=== PATIENT | female | born 1960 | race Caucasian/White ===

== ENCOUNTER 2019-12-23 15:42 | Emergency (ER) | payer BC, SELFPAY ==
[2019-12-23 16:17] VITALS: BP 132/77; PULSE 73; RESP 18; TEMP 36.8; O2SAT 97; BMI 34.3
--- NOTE | 2019-12-23 16:17 | HMH.EDUTC ---
[facility] [place] Clinical Impression: Oscar UTI (urinary tract infection) Qualifiers: Urinary tract infection type: site unspecified Hematuria presence: with hematuria Qualified Code(s): N39.0 - Urinary tract infection, site not specified Disposition: Home, Self-Care Condition on Discharge: Good Instructions: Urinary Tract Infection Additional Instructions: Drink plenty of fluids. Take tylenol or ibuprofen for pain or fever. Take the medications as directed. Follow up with your regular doctor. GO TO THE ER FOR ANY WORSENING SYMPTOMS The pyridium will make your urine turn orange, this is an expected side effect. It will stain your clothes if it comes into contact with them. The ondesetron (zofran) is for nausea. You may not need to get this, but there's a prescription of it sent to your pharmacy if you do. Prescriptions: Ondansetron [Zofran 4mg ODT] 4 mg PO Q8HP PRN #10 tab.rapdis PRN Reason: Nausea [facility] Sulfamethoxazole/Trimethoprim [Bactrim DS tablet] 1 each PO BID 7 Days #14 tab Transmission Status: [facility] Permethrin [Elimite] 1 applicatio TP ONCE #1 bottle Transmission Status: [facility] predniSONE [Prednisone 20mg Tab] 20 mg PO BID 4 Days #8 tab Transmission Status: [facility] Phenazopyridine HCl [Pyridium 200mg Tablet] 200 pow PO TID #6 tab Transmission Status: Received by [facility] Referrals: Arnol Hurley [Primary Care Provider] - Time of Disposition: 16:30 Medical Decision Making - Medical Records Medical records reviewed: No: I reviewed the patient's medical records. - Pete Inquiry Pt receiving controlled substance: No Vital Signs: 12/23/19 16:17 12/23/19 16:44 Temperature 98.3 F 98.3 F Temperature Source Oral Pulse Rate 73 Pulse Rate [Left Brachial] 73 Respiratory Rate 18 18 Blood Pressure 132/77 Blood Pressure [Left Arm] 132/77 Blood Pressure Mean [Left Arm] 95 Blood Pressure Source [Left Arm] Automatic Cuff Blood Pressure Position [Left Arm] Sitting 02 Sat by Pulse Oximetry 97 Oxygen Delivery Method Room Air - Lab Data Lab results reviewed: Yes: I reviewed the patient's lab results. Lab Results 12/23/19 16:21: Urine Color Yellow, Urine Appearance Cloudy, Urine pH 5.5, Ur Specific Guild 1.020, Urine Protein Negative, Urine Glucose (UA) Negative, Urine Ketones Negative, Urine Blood 2+, Urine Nitrate Positive A, Urine Bilirubin Negative, Urine Urobilinogen 0.2, Ur Leukocyte Esterase 1+ A Orders (Tests/Meds): ORDERS Category Date Time Status Urine Culture Stat Micro 12/23/19 16:05 [place] [facility] [place] - General Stated complaint: possible UTI Time Seen by Provider: 12/23/19 16:17 - History of Present Illness Provider Complaint: She states that she began having burning while she urinates and low back pain this morning. She gets UTI's occasionally and states that she feels like she has one now. She also thinks that she has chiggers. Her and her have worked outside a lot the past few days, and both of them have been having itching and rash on their legs and chest. - Related Data Previous Rx's Medication Instructions Recorded Ondansetron [Zofran 4mg ODT] 4 mg PO Q8HP PRN #10 tab.rapdis 12/23/19 Permethrin [Elimite] 1 applicatio TP ONCE #1 bottle 12/23/19 Phenazopyridine HCl [Pyridium 200 pow PO TID #6 tab 12/23/19 200mg Tablet] Sulfamethoxazole/Trimethoprim 1 each PO BID 7 Days #14 tab 12/23/19 [Bactrim DS tablet] predniSONE [Prednisone 20mg 20 mg PO BID 4 Days #8 tab 12/23/19 Tab] Allergies Allergy/AdvReac Type Severity Reaction Status Date / Time Penicillins [PENICILLINS] Allergy Mild Verified 12/08/17 17:29 [facility] History - Hepatitis A Screen Attestation statement:: This patient has been screened for Hepatitis A risk factors.
[2019-12-23 16:28] LABS: Apearance,Urine Cloudy (Clear); Bilirubin,Urine Negative (Negative); Blood, Urine 2+ (Negative); Color,Urine Yellow (Yellow); Glucose,Urine (UA) Negative (Negative); Ketones,Urine Negative (Negative); PH,Urine 5.5 (5.0-8.5); Protein,Urine Negative (Negative); UTC Leukocyte Esterase,Urine 1+ (Negative); UTC Nitrate,Urine Positive (Negative); Urobilinogen,Urine 0.2 EU/dl (0.2)
[2019-12-23 16:44] VITALS: BP 132/77; PULSE 73; RESP 18; TEMP 36.8; O2SAT 97
== END 2019-12-23 16:48 | disposition home or self-care (01) ==
PROVIDERS: Emergency Provider Nurse Practitioner Family; PCP Family Medicine
DX: N39.0 Urinary tract infection, site not specified (principal); B88.0 Other acariasis; F17.210 Nicotine dependence, cigarettes, uncomplicated
CPT/HCPCS: 81003; 87086; 87088; 87186; 99201

== ENCOUNTER 2022-07-24 15:42 | Emergency (ER) | payer BC, SELFPAY ==
[2022-07-24 17:20] VITALS: BP 135/73; PULSE 81; RESP 19; TEMP 36.6; O2SAT 98; BMI 32.5
[2022-07-24 17:37] LABS: Apearance,Urine Cloudy (Clear); Bilirubin,Urine Negative (Negative); Blood, Urine Negative (Negative); Color,Urine Yellow (Yellow); Glucose,Urine (UA) Negative (Negative); Ketones,Urine Negative (Negative); PH,Urine 5.5 (5.0-8.5); Protein,Urine Negative (Negative); Specific Gravity, Urine 1.005 (1.005-1.030); UTC Leukocyte Esterase,Urine 1+ (Negative); UTC Nitrate,Urine Negative (Negative); Urobilinogen,Urine 0.2 EU/dl (0.2)
[2022-07-24 18:01] VITALS: BP 135/73; PULSE 81; RESP 19; TEMP 36.6; O2SAT 98
--- NOTE | 2022-07-24 18:04 | EXP.UTC ---
Discharge Plan Disposition Patient Disposition: Home, Self-Care Condition: Good Prescriptions Prescriptions: New nitrofurantoin monohyd/m-cryst [Macrobid] 100 mg capsule 100 mg PO Q12H 7 Days Qty: 14 0RF Rx Instructions: must administer with a meal/food phenazopyridine [Pyridium] 200 mg tablet 200 mg PO Q8H 2 Days Qty: 6 0RF No Action phenazopyridine 200 MG tablet 200 pow PO TID Qty: 6 0RF prednisone 20 MG tablet 20 mg PO BID 4 Days Qty: 8 0RF permethrin 60 GM cream 1 applicatio TP ONCE Qty: 1 0RF Rx Instructions: apply from neck down, wash off after 8 to 14 hours. sulfamethoxazole-trimethoprim 1 EACH tablet 1 each PO BID 7 Days Qty: 14 0RF ondansetron 4 MG tablet,disintegrating 4 mg PO Q8HP PRN (Reason: Nausea) Qty: 10 0RF Referrals Follow up/Referrals: Provider,Referral, MD [Primary Care Provider] - See instructions Activity Restrictions/Add. Instructions Additional Instructions/Restrictions: *Increase fluids. Water not Soda or Tea *Start antibiotic immediately and be sure to take as ordered for the FULL length of time although you should start to see improvement over the next 48 hours *Pyridium as needed Remember this medication will turn your urine . This is normal but it will stain what ever it gets on *You should not use Pyridium for more than 48 hours. If so , follow up with your primary physician to review urine culture and ensure that antibiotic is adequate for infection *Be SURE to follow up anytime for new or worsening symptoms with your family doctor. AND in 48 hours for urine culture results with your family doctor, if you do not have a doctor then you may call back to the [facility] for urine culture results and further treatment. We do recommend that you choose and establish care with a Primary Care Physician. ?AND follow up with them ?in 10-14 days to repeat UA to ensure infection is resolved and blood no longer present *Be sure to let your PCP know that we sent urine cultures from the [facility] so they can follow up to ensure that you area the on the correct antibiotic Call your doctor office and make appointment for 48 hours (2 days from today) ?to follow up and get the results of your urine culture and further treatment Clinical Impressions Clinical Impression: UTI (urinary tract infection) Instructions Patient Instructions: Nitrofurantoin, DI for Urinary Tract Infection (UTI) Discharge ED Provider: Margarita Grande [facility] [place] HPI General Stated complaint: POSSIBLE UTI Mode of Arrival: Ambulatory Source of Information: Patient Limitations: No Limitations Time Seen by Provider: 07/24/22 18:04 Description of Symptoms (Recalled from Triage Doc. by RN): PATIENT C/O BURNING AND FREQUENCY WITH URINATION SINCE YESTERDAY HEENT Symptoms (Recalled from RN notes): No Resp Symptoms (Recalled from RN notes): No Skin Symptoms (Recalled from RN notes): No MS Symptoms (Recalled from RN notes): No Functional Status (Recalled from RN notes): WNL History of Present Illness Provider Complaint: Patient states that she has been having burning with urination since yesterday States that today she was still having symptoms so she came in to get checked Related Data Previous Rx's Medication Instructions Recorded ondansetron 4 mg disintegrating 4 mg PO Q8HP PRN Nausea ##10 12/23/19 tablet permethrin 5 % topical cream 1 applicatio TP ONCE ##1 12/23/19 phenazopyridine 200 mg tablet 200 pow PO TID #6 tabs 12/23/19 prednisone 20 mg tablet 20 mg PO BID 4 days #8 tabs 12/23/19 sulfamethoxazole 800 1 each PO BID 7 days #14 tabs 12/23/19 mg-trimethoprim 160 mg tablet nitrofurantoin 100 mg PO Q12H 7 days #14 caps 07/24/22 monohydrate/macrocrystals 100 mg capsule (Macrobid) phenazopyridine 200 mg tablet 200 mg PO Q8H pain 2 days #6 tabs 07/24/22 (Pyridium) Allergies Allergy/AdvReac Type Severity Reaction Status Date / Time Penicillins [PENICILLINS] Allergy Mild Verified 12/08/17 17:
== END 2022-07-24 18:19 | disposition home or self-care (01) ==
PROVIDERS: Emergency Provider Nurse Practitioner
DX: N39.0 Urinary tract infection, site not specified (principal)
CPT/HCPCS: 81003; 87086; 87088; 87186; 99212; 99213; G0463

== ENCOUNTER 2023-09-04 15:25 | Emergency (ER) | payer BC, SELFPAY ==
[2023-09-04] VITALS (7 sets, daily range): BP systolic 108–154; BP diastolic 48–88; PULSE 82–87; RESP 16–23; TEMP 36.7–37.7; O2SAT 90–96; BMI 30.9
--- NOTE | 2023-09-04 15:23 | ECG_ITS ---
APPROVED REPORT Exam: Resting ECG HR:86 bpm ECG Measurements Heart Rate 86 AXES WV 159 P 76 QRSd 95 QRS -26 QT 361 T 73 QTc 405 Conclusion SINUS RHYTHM LOW QRS VOLTAGE IN PRECORDIAL LEADS [QRS DEFLECTION < 1.0 mV IN CHEST LEADS] POSSIBLE ANTERIOR MYOCARDIAL INFARCTION , PROBABLY OLD [30 ms Q WAVE IN V3/V4, OR R < 0.2 mV IN V4] BORDERLINE ECG UNCONFIRMED REPORT Electronically signed by : Solitario Stewart MD 09/04/2023 21:53:12
[2023-09-04 16:15] LABS: Influenza A, PCR Not Detected (NotDetected); Influenza B, PCR Not Detected (NotDetected)
--- NOTE | 2023-09-04 16:18 | XR_ITS ---
PROCEDURE INFORMATION: Exam: XR Chest Exam date and time: 09/04/2023 4:38 PM Age: 63 years old Clinical indication: Dyspnea; Sternal or substernal pain TECHNIQUE: Imaging protocol: Radiologic exam of the chest. Views: 1 view. COMPARISON: ABDPELW/O CT ABD PELVIS W/O CONTRAST 03/11/2017 4:40 PM FINDINGS: Lungs: Possible asymmetric opacity in the left lung base medially behind the left side of the heart. Lungs are otherwise clear. Pleural spaces: Unremarkable. No pleural effusion. No pneumothorax. Heart/Mediastinum: Unremarkable. No cardiomegaly. Bones/joints: Unremarkable. IMPRESSION: Potential opacity in the left retrocardiac region that might reflect summation shadows accentuated by portable technique with underpenetration versus developing infiltrate or atelectasis or other process. Advise a PA and lateral view of the chest or CT of the chest or alternatively a short-term follow-up chest x-ray in 3-4 weeks to reassess this finding.
--- NOTE | 2023-09-04 16:20 | ED_ITS ---
Discharge Plan Disposition Patient Disposition: Home, Self-Care Prescriptions Prescriptions: New Paxlovid 300 mg (150 mg x 2)-100 mg tablets,dose pack See Rx Instructions .ROUTE .COMPLEX Qty: 30 0RF Rx Instructions: take TWO 150 mg tablets of nirmatrelvir with ONE 100 mg tablet of ritonavir twice daily for 5 days No Action phenazopyridine 200 MG tablet 200 pow PO TID Qty: 6 0RF prednisone 20 MG tablet 20 mg PO BID 4 Days Qty: 8 0RF permethrin 60 GM cream 1 applicatio TP ONCE Qty: 1 0RF Rx Instructions: apply from neck down, wash off after 8 to 14 hours. sulfamethoxazole-trimethoprim 1 EACH tablet 1 each PO BID 7 Days Qty: 14 0RF ondansetron 4 MG tablet,disintegrating 4 mg PO Q8HP PRN (Reason: Nausea) Qty: 10 0RF nitrofurantoin monohyd/m-cryst [Macrobid] 100 mg capsule 100 mg PO Q12H 7 Days Qty: 14 0RF Rx Instructions: must administer with a meal/food phenazopyridine [Pyridium] 200 mg tablet 200 mg PO Q8H 2 Days Qty: 6 0RF Referrals Follow up/Referrals: Lamine Pavon MD [Staff Physician] - See instructions Provider,MD Aniket [Primary Care Provider] - See instructions Activity Restrictions/Add. Instructions Additional Instructions/Restrictions: No acute cardiopulmonary emergency was identified today. As discussed you may follow-up with a welder pipe making to discuss a downstream stress test or heart cath. Additionally you were diagnosed with COVID-19 and given evidence of emphysema on your CT scan you are high risk and therefore Paxlovid was prescribed. Return with any increasing shortness of breath high fevers that are not breaking or other concerns. Clinical Impressions Clinical Impression: Chest pain, COVID-19 Discharge ED Provider: Ariana Couch [facility] General Chief Complaint: Chest Pain Stated Complaint: cp Time Seen by Provider: 09/04/23 16:11 Mode of Arrival: Ambulatory Source of Information: Patient and Spouse Limitations: No Limitations Description of Symptoms (Recalled from ER Triage Doc. by RN): pt c/o central c hest pain that radiates into her back and L shoulder. pt reports her is positive for covid. pt also reports minimal SOA and that she was unable to taste her lunch. History of Present Illness HPI narrative: Patient is a 63-year-old female presenting today with multiple complaints. States she has had a bit of a cough but she has a chronic cough associated with smoking. No history of COPD or any heart disease that she is aware of. Around 2:00 she started having sudden substernal chest pressure rating into her left shoulder this is still persisting at this point but much better than it was. Has been on exertional no diaphoresis or dyspnea associate with this. No fevers that she is aware of. Denies any lower extremity swelling history of DVT or PE any hemoptysis prolonged mobilizations etc. Related Data Previous Rx's Medication Instructions Recorded ondansetron 4 mg disintegrating 4 mg PO Q8HP PRN Nausea ##10 12/23/19 tablet permethrin 5 % topical cream 1 applicatio TP ONCE ##1 12/23/19 phenazopyridine 200 mg tablet 200 pow PO TID #6 tabs 12/23/19 prednisone 20 mg tablet 20 mg PO BID 4 days #8 tabs 12/23/19 sulfamethoxazole 800 1 each PO BID 7 days #14 tabs 12/23/19 mg-trimethoprim 160 mg tablet nitrofurantoin 100 mg PO Q12H 7 days #14 caps 07/24/22 monohydrate/macrocrystals 100 mg capsule (Macrobid) phenazopyridine 200 mg tablet 200 mg PO Q8H pain 2 days #6 tabs 07/24/22 (Pyridium) nirmatrelvir 300 mg (150 mg See Rx Instructions PO .COMPLEX 09/04/23 x2)-ritonavir 100 mg tablet,dose #30 tabs pack (Paxlovid) Allergies Allergy/AdvReac Type Severity Reaction Status Date / Time Penicillins [PENICILLINS] Allergy Mild Verified 12/08/17 17:29 [facility] Disclaimer: The information contained in this section may have been updated after the patient was seen, as this information can be updated by other users. Medical History (Updated 09/04/23 @ 16:20 by Ariana Couch MD) Diabetes mellitus, type 2 Urinary tract infection Surgical History (Updated 07/24/22 @ 17:40 by Alee Beverly RN) History of cholecystectomy History of tonsillectomy History of tubal ligation Social History (Updated 07/24/22 @ 17:40 by Alee Beverly RN) Smoking Status: Current every day smoker tobacco type: cigarettes packs per day: 1 alcohol intake: never current occupational status: other Travel in the last 8 weeks: None ROS Obtained: Yes All systems reviewed & no additional complaints except as documented Physical Exam General General appearance: alert Respiratory Respiratory exam: Present normal lung sounds bilaterally Cardiovascular Cardiovascular exam: Present regular rate Neurological Exam Neurological exam: Present alert HEART Score HEART Score HEART Score assessment performed?: Yes History (anamnesis): Slightly suspicious ECG: Normal Age: 45-65 years Risk factors: 1-2 risk factors Troponin: </= normal limit HEART Score: 2 Critical Care Critical Care Time Critical Care Time: No Medical Decision Making Pete Inquiry Pt receiving controlled substance: No Vital Signs Vital Signs: 09/04/23 15:34 09/04/23 15:29 09/04/23 16:00 Temperature 99.9 F H Temperature Source Oral Pulse Rate 84 85 Pulse Rate [Left] 86 Respiratory Rate 20 16 Blood Pressure 154/88 H 137/69 Blood Pressure [Right Arm] 154/88 H Blood Pressure Mean [Right Arm] 110 Blood Pressure Source [Right Arm] Automatic Cuff Blood Pressure Position [Right Arm] Sitting 02 Sat by Pulse Oximetry 96 94 L 92 L Oxygen Delivery Method Room Air Room Air Room Air 09/04/23 16:30 09/04/23 17:30 09/04/23 19:00 Temperature Temperature Source Pulse Rate 86 82 86 Pulse Rate [Left] Respiratory Rate 23 Blood Pressure 145/77 H 143/77 H 108/48 L Blood Pressure [Right Arm] Blood Pressure Mean [Right Arm] Blood Pressure Source [Right Arm] Blood Pressure Position [Right Arm] 02 Sat by Pulse Oximetry 96 94 L 90 L Oxygen Delivery Method Room Air Room Air Lab Data Lab results reviewed: Yes I reviewed the patient's lab results. Labs: Lab Results 09/04/23 15:30: WBC 8.6, RBC 4.59, Hgb 15.2, Hct 43.4, MCV 94.5, MCH 33.1 H, MCHC 35.0, RDW 13.2, Plt Count 136 L, MPV 9.1, Neut % (Auto) 77.4, Lymph % (Auto) 10.8, Dane % (Auto) 8.0, Eos % (Auto) 3.1, Baso % (Auto) 0.6, Neut # (Auto) 6.7, Lymph # (Auto) 0.9, Dane # (Auto) 0.7, Eos # (Auto) 0.3, Baso # (Auto) 0.1, D-Dimer 0.54 H, Sodium 136, Potassium 4.3, Chloride 103, Carbon Dioxide 25, Anion Gap 12.3, BUN 6 L, Creatinine 0.90, Estimated Creat Clear 72, Estimated GFR 63, Est GFR ( Amer) 76, Glucose 176 H, Calcium 9.6, Total Bilirubin 0.4, AST 68 H, ALT 41, Alkaline Phosphatase 55, Troponin I < 0.01, Total Protein 7.2, Albumin 4.3, Globulin 2.9, Albumin/Globulin Ratio 1.5, SARS-CoV-2 (PCR) Detected A, Influenza A Untype (PCR) Not detected, Influenza Type B (PCR) Not detected 09/04/23 18:22: Troponin I < 0.01 09/04/23 15:30 09/04/23 15:30 Response Orders (Tests/Meds): ED MEDICATIONS Discontinued Medications Generic Name Dose Route Start Last Admin Trade Name Freq PRN Reason Stop Dose Admin Acetaminophen 1,000 mg 09/04/23 16:18 09/04/23 16:24 Acetaminophen 500mg Tab PO 09/04/23 16:19 1,000 mg ONCE ONE Administration Lactated Ringer's 1,000 mls @ 999 mls/hr 09/04/23 16:30 09/04/23 16:25 Lactated Ringer's 1000 Ml Bag IV 09/04/23 17:30 999 mls/hr .Q1H1M ROLAND Administration Iopamidol 100 ml 09/04/23 17:21 09/04/23 17:22 Iopamidol-370 (76%);100ml Bottle IV 09/04/23 17:22 100 ml ONCE ONE Administration Ketorolac Tromethamine 15 mg 09/04/23 16:18 09/04/23 16:24 Ketorolac 30mg/Ml Vial IV 09/04/23 16:19 15 mg ONCE ONE Administration Sodium Chloride 50 ml 09/04/23 17:21 09/04/23 17:22 0.9 % Sodium Chloride 50 Ml Vial IV 09/04/23 17:22 50 ml ONCE ONE Administration Sodium Chloride 10 ml 09/04/23 17:21 09/04/23 17:22 Sodium Chloride 0.9% 10ml Syr (Rad Only) IV 09/04/23 17:22 10 ml ONCE ONE Administration ORDERS Category Date Time Status CT angio chest PE protocol Stat Cat Scan 09/04/23 17:06 Completed CXR --portable [XR chest portable] Stat Exams 09/04/23 16:18 Completed CBC w/Auto Diff [Complete Blood Count Auto Diff] Stat Lab 09/04/23 15:30 Completed CMP [Comprehensive Metabolic Panel] Stat Lab 09/04/23 15:30 Completed D-Dimer Stat Lab 09/04/23 15:30 Completed Rapid PCR Covid and Flu A/B Stat Lab 09/04/23 15:30 Completed Trop I [Troponin I] Stat Lab 09/04/23 15:30 Completed Troponin I Q3H Lab 09/04/23 18:22 Completed Troponin I Q3H Lab 09/04/23 22:30 Ordered ECG initial Besson Routine Y 09/04/23 15:23 Completed ECG Data Tracing #1: Attestation: I reviewed this ECG and interpreted as documented below: ECG Narrative: Ventricular rate of 86 no acute ischemic changes noted there is indeterminate axis no significant conduction abnormalities noted MDM Narrative Medical Decision Narrative: Is a 63-year-old female presenting today with chest pain radiating to the left shoulder in association with a low-grade temperature of 99.9 and her is in the room with her that has a known positive diagnosis of COVID. She does have a cough on my exam and has an otherwise normal exam. Will get a D-dimer using a years cut off of 1.[address] PE as pulm and embolism is on the differential as is acute coronary syndrome and myocarditis. Will get serial troponins. EKG was nonischemic. I suspect she likely has COVID which could explain her cough and her fatigue but the chest pain seems to be out of p roportion to what it normally see with just a viral infection. It is possible a virus caused a plaque rupture or is associated with a clot formation as well from a PT standpoint. Will reassess. Toradol Tylenol and IV fluids have been administered will reassess. Chest x-ray performed in person interpreted no acute cardiopulmonary emergency however radiology was concerned about a possible malignancy versus opacification therefore CT scan was performed which did not show on my personal interpretation or radiology read a PE or a focal consolidation or mass there was emphysematous changes. Also pulmonary nodule that she is aware of and will follow-up with. COVID-19 was positive given the fact that she likely has emphysema she is high risk and Paxil that was prescribed. Serial troponins were negative. Is not consistent with acute coronary syndrome. Patient remains asymptomatic in the ED. She is been advised to follow-up with her welder pipe making for possible outpatient stress or heart cath. Return precautions emphasized was discharged in stable condition.
[2023-09-04] MEDS: ACETAMINOPHEN 500MG TAB 1000 MG PO (16:24)
[2023-09-04] MEDS: KETOROLAC 30MG/ML VIAL 15 MG IV (16:24)
[2023-09-04] MEDS: LACTATED RINGERS 1000ML 1,000 ML 999 ML IV (16:25)
[2023-09-04 16:29] LABS: Basophils # 0.1 K/mm3 (0-0.2); Basophils % 0.6 % (0.1-2.0); Eosinophils # 0.3 K/mm3 (0.0-0.4); Eosinophils % 3.1 % (0.1-12.0); Hematocrit 43.4 % (37.0-47.0); Hemoglobin 15.2 g/dL (12.2-16.2); Lymphocytes # 0.9 K/mm3 (0.7-4.5); Lymphocytes % 10.8 % (10-50); Mean Corpuscular Hemoglobin 33.1 pg (27.0-31.2); Mean Corpuscular Volume 94.5 fl (81-99); Mean Platelet Volume 9.1 fl (7.4-10.4); Monocytes # 0.7 K/mm3 (0.1-1.0); Neutrophils # 6.7 K/mm3 (1.8-7.8); Neutrophils % 77.4 % (37.0-80.0); Platelet Count 136 K/mm3 (142-424); Red Blood Count 4.59 M/mm3 (4.20-5.40); Red Cell Distribution Width 13.2 % (11.5-17.5); White Blood Count 8.6 K/mm3 (4.8-10.8)
[2023-09-04 16:32] LABS: Alanine Aminotransferase 41 U/L (12-78); Albumin Level 4.3 g/dl (3.5-5.0); Albumin/Globulin Ratio 1.5 (1.1-1.8); Alkaline Phosphatase 55 U/L (38-126); Anion Gap 12.3 mEq/L (5-15); Aspartate Amino Transferase 68 U/L (14-36); Bilirubin,Total 0.4 mg/dl (0.2-1.3); Blood Urea Nitrogen 6 mg/dl (7-17); Calcium 9.6 mg/dl (8.4-10.2); Carbon Dioxide 25 mmol/L (22.0-30.0); Chloride 103 mmol/L (98-107); Creatinine Clearance Estimated 72 mL/min (50-200); Estimated Glomerular Filt Rate 63 ml/min (>60); GFR (African American) 76 ML/MIN (>60); Globulin 2.9 g/dL (1.3-3.2); Glucose 176 mg/dl (74-100); Potassium 4.3 mmoL/L (3.5-5.1); Sodium 136 mmol/L (136-145); Total Protein,Serum 7.2 g/dl (6.3-8.2)
[2023-09-04 16:37] LABS: D-Dimer 0.54 ug/mL (0.0-0.5)
[2023-09-04 16:40] LABS: Coronavirus 19, PCR Detected (NotDetected)
[2023-09-04 16:46] LABS: Troponin I < 0.01 ng/ml (0.00-0.034)
--- NOTE | 2023-09-04 17:06 | CT_ITS ---
PROCEDURE INFORMATION: Exam: CTA Chest With Contrast Exam date and time: 09/04/2023 5:16 PM Age: 63 years old Clinical indication: Dyspnea; Additional info: Dyspnea, abnormal XR TECHNIQUE: Imaging protocol: Computed tomographic angiography of the chest with contrast. Exam focused on the arteries. 3D rendering (Not supervised by radiologist): MIP and/or 3D reconstructed images were created by the technologist. Radiation optimization: All CT scans at this facility use at least one of these dose optimization techniques: automated exposure control; mA and/or kV adjustment per patient size (includes targeted exams where dose is matched to clinical indication); or iterative reconstruction. Contrast material: ISOVUE; Contrast volume: 75 ml; Contrast route: INTRAVENOUS (IV); COMPARISON: CR XR CHEST PORTABLE 09/04/2023 4:38 PM FINDINGS: Pulmonary arteries: Normal. No pulmonary emboli. Aorta: Unremarkable. No aortic aneurysm. No aortic dissection. Lungs: Bilateral mild emphysematous changes. Mosaic attenuation of the lung zuñiga suggesting air trapping related to small airway disease. A 6 mm noncalcified nodule in the central left upper lobe on image 48 of series 7. A 9 mm calcified nodule medial left lower lobe on image 57 compatible with granuloma. A 5 mm noncalcified right middle lobe nodule on image 66 noted. Mild posterior bibasilar fibro atelectatic changes. Lung zuñiga otherwise clear. No suspicious abnormality in the left retrocardiac region. Pleural spaces: Unremarkable. No pneumothorax. No pleural effusion. Heart: Unremarkable. No cardiomegaly. No pericardial effusion. Lymph nodes: Mildly enlarged subcarinal node measuring 10 mm. Bilateral mild hilar adenopathy also noted. Bones/joints: Unremarkable. No acute fracture. Soft tissues: Unremarkable. IMPRESSION: 1. No acute disease. 2. Emphysematous changes. Mosaic attenuation suggesting small airway disease. 3. Incidental bilateral lung nodules largest measuring 6 mm. For patients at low risk (minimal or absent history of smoking and of other known risk factors), recommend CT Chest at 3-6 months, then consider CT Chest at 18-24 months. For patients at high risk (history of smoking or of other known risk factors), recommend CT Chest at 3-6 months, then CT Chest at 18-24 months. (Reference: Pauline) 4. Nonspecific mild mediastinal and bilateral hilar adenopathy that can be reassessed at time of the follow-up CT . COMMENTS: The presence of pulmonary emphysema on CT is an independent risk factor for lung cancer. In the absence of a history or active diagnosis of lung cancer, it is recommended that this patient with emphysema be evaluated for enrollment in a low dose CT lung cancer screening program. REFERENCES: Pauline Grande, et al. Guidelines for Management of Incidental Pulmonary Nodules Detected on CT Images: From the Fleischner Society 2017. Radiology. 2017;284(1):228-243.
[2023-09-04] MEDS: IOPAMIDOL-370 (76%);100ML BOTTLE 100 ML IV (17:22)
[2023-09-04] MEDS: 0.9 % SODIUM CHLORIDE 50 ML VIAL IV (17:22)
[2023-09-04] MEDS: SODIUM CHLORIDE 0.9% 10ML SYR (RAD ONLY) 10 ML IV (17:22)
--- NOTE | 2023-09-04 18:23 | PC.NURSE ---
PT RESTING IN BED NO NEEDS AT THIS TIME,CALL LIGHT AND AT BS
[2023-09-04 19:09] LABS: Troponin I < 0.01 ng/ml (0.00-0.034)
== END 2023-09-04 19:54 | disposition home or self-care (01) ==
PROVIDERS: Emergency Provider Student in an Organized Health Care Education/Training Program
DX: U07.1 COVID-19 (principal); R07.2 Precordial pain; R05.3 Chronic cough; F17.210 Nicotine dependence, cigarettes, uncomplicated
CPT/HCPCS: 71045; 71275; 80053; 84484; 85025; 85378; 87636; 93005; 96361; 96374; 99285; Q9967